=== PATIENT | male | born 1995 | race Caucasian/White ===

== ENCOUNTER 2021-11-04 18:24 | Emergency (ER) | payer OTHER ==
[~2021-11-04] VITALS: Ht 175.3 cm; Wt 54.5 kg
[2021-11-04 19:10] LABS: BASOPHILS % (AUTO) 0.4 % (0-1); EOSINOPHILS # (AUTO) 0.1 X10'3 (0-0.9); EOSINOPHILS % (AUTO) 1.2 % (0-6); HEMATOCRIT 42.7 % (42.0-52.0); HEMOGLOBIN 14.5 g/dl (14.0-17.9); LYMPHOCYTES # (AUTO) 1.8 X10'3 (1.1-4.8); LYMPHOCYTES % (AUTO) 27.1 % (21-51); MEAN CORPUSCULAR HEMOGLOBIN 29.3 PG (27.0-31.0); MEAN CORPUSCULAR HGB CONC 33.9 g/dL (33.0-36.5); MEAN CORPUSCULAR VOLUME 86.3 FL (78-98); MEAN PLATELET VOLUME 8.2 FL (7.4-10.4); MONOCYTES # (AUTO) 0.6 X10'3 (0-0.9); MONOCYTES % (AUTO) 8.6 % (2-12); NEUTROPHILS # (AUTO) 4.1 X10'3 (1.8-7.7); NEUTROPHILS % (AUTO) 62.7 % (42-75); PLATELET COUNT 222 X10'3 (140-440); RED BLOOD COUNT 4.94 X10'6 (4.70-6.10); RED CELL DISTRIBUTION WIDTH 13.9 % (11.5-14.5); WHITE BLOOD COUNT 6.5 X10'3 (4.5-11.0)
[2021-11-04 19:28] LABS: ALANINE AMINOTRANSFERASE 40 U/L (12-78); ALBUMIN 3.5 G/DL (3.4-5.0); ALBUMIN/GLOBULIN RATIO 1.1 (1.1-1.5); ALKALINE PHOSPHATASE 72 IU/L (46-116); ANION GAP 8 (8-16); ASPARTATE AMINO TRANSFERASE 24 U/L (10-37); BILIRUBIN,TOTAL 0.3 MG/DL (0.1-1.0); BLOOD UREA NITROGEN 13 MG/DL (7-18); BUN/CREATININE RATIO 13.1 (5.4-32.0); CHLORIDE 108 MMOL/L (99-107); CREATININE 0.99 MG/DL (0.60-1.10); ETHANOL < 0.010 GM/DL (0.0-0.010); GLUCOSE 109 MG/DL (70-104); POTASSIUM 3.7 MMOL/L (3.5-5.1); SODIUM 141 MMOL/L (135-145); TOTAL CARBON DIOXIDE 25.3 MMOL/L (24-32); TOTAL PROTEIN 6.6 G/DL (6.4-8.2); eGFR > 90 ML/MIN
[2021-11-04] MEDS ORDERED: LORA2TAB96 PO (19:51)
[2021-11-04] MEDS ORDERED: HYDR50CA PO (19:52)
[2021-11-04 20:19] LABS: URINE AMPHETAMINE SCREEN POSITIVE (Neg); URINE BARBITUATE SCREEN NEGATIVE (Neg); URINE BENZODIAZEPINES SCREEN NEGATIVE (Neg); URINE CANNABINOID SCREEN POSITIVE (Neg); URINE COCAINE SCREEN NEGATIVE (Neg); URINE METHADONE SCREEN NEGATIVE (Neg); URINE OPIATE SCREEN NEGATIVE (Neg); URINE PHENCYCLIDINE SCREEN NEGATIVE (Neg)
[2021-11-04] MEDS: hydrOXYzine 25 MG tablet PO SCH (20:48)
--- NOTE | 2021-11-05 06:25 | NUR ---
PT FROM [place], WANTS TO JUMP OFF SOMETHING HIGH
--- NOTE | 2021-11-05 06:39 | NUR ---
PACKET SENT TO [facility]
[2021-11-05] MEDS: hydrOXYzine 25 MG tablet PO SCH ×3 (09:04→17:36)
[2021-11-05 12:21] LABS: CLARITY,URINE CLEAR (Clear); COLOR,URINE YELLOW (Yellow); GLUCOSE, URINE NEGATIVE (Neg); KETONES,URINE NEGATIVE (Neg); LEUKOCYTE ESTERASE ,URINE NEGATIVE (Neg); NITRITES, URINE NEGATIVE (Neg); OCCULT BLOOD,URINE NEGATIVE (Neg); PH,URINE 7.5 (4.8-8.0); PROTEIN,URINE NEGATIVE (Neg); UROBILINOGEN,URINE 0.2 E.U/dL (0.2-1.0)
[2021-11-05 12:22] LABS: UA COLLECTION TYPE URINAL
--- NOTE | 2021-11-05 12:47 | NUR ---
URINE RESULTS FAXED TO [facility]
--- NOTE | 2021-11-05 14:15 | NUR ---
HORTENSIA FROM [facility] CALLED, [facility] WILL CALL BACK FOR ETA.
[2021-11-05] MEDS ORDERED: LORazepam 1 MG tablet PO ONE (14:50)
--- NOTE | 2021-11-05 18:27 | NUR ---
Patient moved to bed 27 in the ER overflow. He has been cooperative with the move.
--- NOTE | 2021-11-05 19:28 | NUR ---
The patient is resting on his bed. Per [facility] ETA of transport to [facility] is 1999.
[2021-11-05 19:53] VITALS: BP 123/65
== END 2021-11-05 19:56 | disposition still patient (30) ==
LOC: ER 18:25
DX: R45.851 Suicidal ideations (principal); Z20.822 Contact with and (suspected) exposure to COVID-19; Z79.899 Other long term (current) drug therapy
CPT/HCPCS: 36415; 80053; 80305; 80320; 81003; 84443; 85025; 87811; 99285; Q0177

== ENCOUNTER 2021-11-09 18:11 | Emergency (ER) | payer SELFPAY ==
[~2021-11-09 18:11] MED LIST: HYDR50CA PO; LORA2TAB96 PO
== END 2021-11-09 19:15 | disposition left against medical advice (07) ==
LOC: ER 18:12
DX: M79.609 Pain in unspecified limb (principal); Z53.21 Procedure and treatment not carried out due to patient leaving prior to being seen by health care provider

== ENCOUNTER 2021-11-11 18:56 | Emergency (ER) | payer SELFPAY ==
[~2021-11-11] VITALS: Ht 175.3 cm; Wt 64.8 kg
[2021-11-11 20:09] VITALS: BP 106/66
== END 2021-11-11 23:58 | disposition left against medical advice (07) ==
LOC: ER 18:57
DX: Z00.00 Encounter for general adult medical examination without abnormal findings (principal); Z53.21 Procedure and treatment not carried out due to patient leaving prior to being seen by health care provider

== ENCOUNTER 2021-11-12 08:10 | Emergency (ER) | payer MEDICAID ==
[~2021-11-12] VITALS: Ht 175.3 cm; Wt 54.5 kg
[2021-11-12 08:36] VITALS: BP 112/67
== END 2021-11-12 10:22 | disposition home or self-care (01) ==
LOC: ER 08:11
DX: R19.7 Diarrhea, unspecified (principal); F17.200 Nicotine dependence, unspecified, uncomplicated; F12.90 Cannabis use, unspecified, uncomplicated; Z59.00 Homelessness unspecified
CPT/HCPCS: 99281

== ENCOUNTER 2021-11-12 13:19 | Emergency (ER) | payer SELFPAY ==
[~2021-11-12] VITALS: Ht 175.3 cm; Wt 59.1 kg
[2021-11-12 13:38] VITALS: BP 114/67
== END 2021-11-12 17:36 | disposition left against medical advice (07) ==
LOC: ER 13:19
DX: R45.851 Suicidal ideations (principal); Z53.21 Procedure and treatment not carried out due to patient leaving prior to being seen by health care provider

== ENCOUNTER 2021-12-17 01:23 | Emergency (ER) | payer MEDICAID ==
[~2021-12-17] VITALS: Ht 175.3 cm; Wt 62.5 kg
[2021-12-17 01:49] VITALS: BP 118/69
[2021-12-17 02:28] LABS: CLARITY,URINE CLEAR (Clear); COLOR,URINE YELLOW (Yellow); GLUCOSE, URINE NEGATIVE (Neg); KETONES,URINE NEGATIVE (Neg); LEUKOCYTE ESTERASE ,URINE NEGATIVE (Neg); NITRITES, URINE NEGATIVE (Neg); OCCULT BLOOD,URINE NEGATIVE (Neg); PROTEIN,URINE NEGATIVE (Neg); UROBILINOGEN,URINE 0.2 E.U/dL (0.2-1.0)
[2021-12-17 02:29] LABS: UA COLLECTION TYPE CLN CATCH MIDSTREAM
[2021-12-17] MEDS ORDERED: CefTRIAXone 1000mg IM Kit (w/lidocaine diluent) IM STA (03:33)
[2021-12-17] MEDS ORDERED: azithromycin 250mg tablet PO ONE (03:35)
== END 2021-12-17 04:31 | disposition home or self-care (01) ==
LOC: ER 01:23
DX: A64 Unspecified sexually transmitted disease (principal); F17.200 Nicotine dependence, unspecified, uncomplicated; F12.10 Cannabis abuse, uncomplicated; Z59.00 Homelessness unspecified; Z79.899 Other long term (current) drug therapy
CPT/HCPCS: 36415; 81003; 87491; 87591; 96372; 99283; J0696

== ENCOUNTER 2021-12-19 10:57 | Emergency (ER) | payer MEDICAID ==
[~2021-12-19] VITALS: Ht 175.3 cm; Wt 62.0 kg
[2021-12-19 16:15] LABS: BASOPHILS # (AUTO) 0.2 X10'3 (0-0.2); EOSINOPHILS # (AUTO) 0.1 X10'3 (0-0.9); EOSINOPHILS % (AUTO) 1.2 % (0-6); HEMATOCRIT 43.9 % (42.0-52.0); HEMOGLOBIN 15.1 g/dl (14.0-17.9); LYMPHOCYTES # (AUTO) 2.1 X10'3 (1.1-4.8); LYMPHOCYTES % (AUTO) 24.9 % (21-51); MEAN CORPUSCULAR HGB CONC 34.4 g/dL (33.0-36.5); MEAN CORPUSCULAR VOLUME 87.1 FL (78-98); MEAN PLATELET VOLUME 8.2 FL (7.4-10.4); MONOCYTES # (AUTO) 0.4 X10'3 (0-0.9); MONOCYTES % (AUTO) 5.2 % (2-12); NEUTROPHILS # (AUTO) 5.6 X10'3 (1.8-7.7); NEUTROPHILS % (AUTO) 66.7 % (42-75); PLATELET COUNT 274 X10'3 (140-440); RED BLOOD COUNT 5.04 X10'6 (4.70-6.10); RED CELL DISTRIBUTION WIDTH 14.1 % (11.5-14.5); WHITE BLOOD COUNT 8.4 X10'3 (4.5-11.0)
[2021-12-19 16:28] LABS: ALANINE AMINOTRANSFERASE 39 U/L (12-78); ALBUMIN 3.5 G/DL (3.4-5.0); ALBUMIN/GLOBULIN RATIO 1.1 (1.1-1.5); ALKALINE PHOSPHATASE 76 IU/L (46-116); ANION GAP 5 (8-16); ASPARTATE AMINO TRANSFERASE 36 U/L (10-37); BILIRUBIN,TOTAL 0.4 MG/DL (0.1-1.0); BLOOD UREA NITROGEN 12 MG/DL (7-18); BUN/CREATININE RATIO 11.5 (5.4-32.0); CALCIUM 8.2 MG/DL (8.5-10.1); CHLORIDE 107 MMOL/L (99-107); CREATININE 1.04 MG/DL (0.60-1.10); SODIUM 141 MMOL/L (135-145); TOTAL PROTEIN 6.7 G/DL (6.4-8.2); eGFR 87 ML/MIN
[2021-12-19 16:39] LABS: GLUCOSE 110 MG/DL (70-104); POTASSIUM 4.1 MMOL/L (3.5-5.1)
[2021-12-19 16:43] LABS: ETHANOL < 0.010 GM/DL (0.0-0.010)
--- NOTE | 2021-12-19 19:08 | NUR ---
Pt brought to ER overflow, belongings inventoried, changed into green scrubs, and given a sandwhich and water.
--- NOTE | 2021-12-19 22:00 | NUR ---
Pt encouraged to use the bathroom to give a urine sample, but he states he doesn't have to go. pitcher of water given to him and encouraged to drink
--- NOTE | 2021-12-20 00:10 | NUR ---
PT sleeping on R side RR 16
--- NOTE | 2021-12-20 02:00 | NUR ---
Pt sleeping respirations even and unlabored
--- NOTE | 2021-12-20 05:00 | NUR ---
Pt woken up and still states he doesn't need to urinate
[2021-12-20 05:44] VITALS: BP 103/54
--- NOTE | 2021-12-20 06:30 | NUR ---
Pt is in bed, appears to be sleeping.
--- NOTE | 2021-12-20 08:07 | NUR ---
UA collected and sent.
[2021-12-20] MEDS: hydrOXYzine 25 MG tablet PO SCH ×2 (08:10→12:59)
[2021-12-20 08:15] LABS: CLARITY,URINE CLOUDY (Clear); COLOR,URINE YELLOW (Yellow); GLUCOSE, URINE NEGATIVE (Neg); KETONES,URINE NEGATIVE (Neg); LEUKOCYTE ESTERASE ,URINE NEGATIVE (Neg); NITRITES, URINE NEGATIVE (Neg); OCCULT BLOOD,URINE NEGATIVE (Neg); PH,URINE 7.5 (4.8-8.0); PROTEIN,URINE NEGATIVE (Neg); UROBILINOGEN,URINE 0.2 E.U/dL (0.2-1.0)
[2021-12-20 08:16] LABS: UA COLLECTION TYPE CLN CATCH MIDSTREAM
[2021-12-20 08:24] LABS: RBC,URINE 0-2 /HPF (0-2); WBC,URINE 0-4 /HPF (0-4)
[2021-12-20 08:25] LABS: AMORPHOUS PHOSPHATES 3+; BACTERIA,URINE NONE SEEN /HPF (Neg); SQUAMOUS EPITHELIAL CELL,UR FEW /LPF (FEW)
[2021-12-20 08:29] LABS: URINE AMPHETAMINE SCREEN NEGATIVE (Neg); URINE BARBITUATE SCREEN NEGATIVE (Neg); URINE BENZODIAZEPINES SCREEN NEGATIVE (Neg); URINE CANNABINOID SCREEN NEGATIVE (Neg); URINE COCAINE SCREEN NEGATIVE (Neg); URINE METHADONE SCREEN NEGATIVE (Neg); URINE OPIATE SCREEN NEGATIVE (Neg); URINE PHENCYCLIDINE SCREEN NEGATIVE (Neg)
--- NOTE | 2021-12-20 10:03 | NUR ---
Pt is lying in bed on his right side, he appears to be sleeping.
--- NOTE | 2021-12-20 12:00 | NUR ---
Pt is lying in bed, appears to be sleeping.
--- NOTE | 2021-12-20 13:18 | NUR ---
Pt ate 100% of lunch.
--- NOTE | 2021-12-20 13:30 | NUR ---
[facility] is evaluating pt.
--- NOTE | 2021-12-20 14:58 | NUR ---
Pt is being discharged.
--- NOTE | 2021-12-20 15:25 | NUR ---
Pt discharged. All belongings returned, a sack lunch was provided. Pt did not have shoes, this nurse found him a pair of shoes. Pt ambulated off the unit accompanied by security.
[2021-12-20] MEDS ORDERED: LORazepam 1 MG tablet PO PRN (21:00)
== END 2021-12-20 15:25 | disposition home or self-care (01) ==
LOC: ER 10:58
DX: F32.A Depression, unspecified (principal); Z20.822 Contact with and (suspected) exposure to COVID-19; F15.10 Other stimulant abuse, uncomplicated; R45.851 Suicidal ideations; F20.9 Schizophrenia, unspecified; F12.90 Cannabis use, unspecified, uncomplicated; Z72.89 Other problems related to lifestyle; Z59.00 Homelessness unspecified; Z79.899 Other long term (current) drug therapy
CPT/HCPCS: 36415; 80053; 80305; 80320; 81001; 84443; 85025; 87811; 99285; Q0177; A4565; A6449

== ENCOUNTER 2022-01-09 22:31 | Emergency (ER) | payer MEDICAID | END 2022-01-09 22:41 | disposition left against medical advice (07) | LOC: ER 22:32 | DX: M79.609 Pain in unspecified limb (principal); Z53.21 Procedure and treatment not carried out due to patient leaving prior to being seen by health care provider ==

== ENCOUNTER 2022-03-14 18:22 | Emergency (ER) | payer MEDICAID | END 2022-03-14 18:38 | disposition left against medical advice (07) | LOC: ER 18:25 | DX: Z11.3 Encounter for screening for infections with a predominantly sexual mode of transmission (principal); Z53.21 Procedure and treatment not carried out due to patient leaving prior to being seen by health care provider ==

== ENCOUNTER 2022-06-17 23:49 | Emergency (ER) | payer MEDICAID, OTHER ==
[~2022-06-17] VITALS: Ht 177.8 cm; Wt 66.8 kg
[~2022-06-17 23:49] MED LIST changes: +LANS30CA37 PO
[2022-06-17 23:59] VITALS: BP 117/78
[2022-06-18] MEDS ORDERED: buprenorphine/naloxone 8MG-2MG SUBlingual film SL ONE (00:10)
== END 2022-06-18 00:59 | disposition home or self-care (01) ==
LOC: ER 23:50
DX: F11.13 Opioid abuse with withdrawal (principal); F12.90 Cannabis use, unspecified, uncomplicated; F15.20 Other stimulant dependence, uncomplicated; Z88.8 Allergy status to other drugs, medicaments and biological substances; Z59.00 Homelessness unspecified
CPT/HCPCS: 99282

== ENCOUNTER 2022-11-01 11:46 | Emergency (ER) | payer MEDICAID ==
[~2022-11-01] VITALS: Ht 175.3 cm; Wt 60.0 kg
[2022-11-01 11:48] VITALS: BP 123/77; PULSE 84; RESP 16; TEMP 97.8; O2SAT 98
== END 2022-11-01 12:00 | disposition left against medical advice (07) ==
LOC: ER 11:47
DX: M79.673 Pain in unspecified foot (principal); Z53.21 Procedure and treatment not carried out due to patient leaving prior to being seen by health care provider
CPT/HCPCS: 99281

== ENCOUNTER 2022-11-19 21:51 | Emergency (ER) | payer MEDICAID | END 2022-11-19 23:21 | disposition left against medical advice (07) | LOC: ER 21:52 | DX: R10.9 Unspecified abdominal pain (principal); Z53.21 Procedure and treatment not carried out due to patient leaving prior to being seen by health care provider ==

== ENCOUNTER 2023-04-15 05:06 | Emergency (ER) | payer MEDICAID ==
[~2023-04-15] VITALS: Ht 175.3 cm; Wt 64.1 kg
[2023-04-15 05:13] VITALS: TEMP 98.2
[2023-04-15 09:27] VITALS: BP 103/63; PULSE 57; RESP 14; O2SAT 100
== END 2023-04-15 11:04 | disposition left against medical advice (07) ==
LOC: ER 05:07
DX: R44.0 Auditory hallucinations (principal); Z53.21 Procedure and treatment not carried out due to patient leaving prior to being seen by health care provider
CPT/HCPCS: 99281

== ENCOUNTER 2023-04-28 13:32 | Emergency (ER) | payer MEDICAID ==
[~2023-04-28] VITALS: Ht 175.3 cm; Wt 60.2 kg
[2023-04-28 14:24] VITALS: BP 130/69; PULSE 102; RESP 16; TEMP 98.5; O2SAT 100
== END 2023-04-28 14:46 | disposition home or self-care (01) ==
LOC: ER 13:33
DX: Z00.8 Encounter for other general examination (principal); F20.9 Schizophrenia, unspecified; F12.90 Cannabis use, unspecified, uncomplicated; F15.90 Other stimulant use, unspecified, uncomplicated; F11.90 Opioid use, unspecified, uncomplicated; Z59.00 Homelessness unspecified; Z72.89 Other problems related to lifestyle; Z88.8 Allergy status to other drugs, medicaments and biological substances; Z79.899 Other long term (current) drug therapy
CPT/HCPCS: 99283

== ENCOUNTER 2023-06-20 18:43 | Emergency (ER) | payer MEDICAID ==
[~2023-06-20] VITALS: Ht 175.3 cm; Wt 63.6 kg
[2023-06-20 18:55] VITALS: BP 119/72; PULSE 100; RESP 18; TEMP 98; O2SAT 99
[2023-06-20 19:07] LABS: BASOPHILS # (AUTO) 0.1 X10'3 (0-0.2); BASOPHILS % (AUTO) 1.2 % (0-1); EOSINOPHILS # (AUTO) 0.1 X10'3 (0-0.9); HEMATOCRIT 43.3 % (42.0-52.0); HEMOGLOBIN 14.3 g/dl (14.0-17.9); LYMPHOCYTES # (AUTO) 2.7 X10'3 (1.1-4.8); LYMPHOCYTES % (AUTO) 47.2 % (21-51); MEAN CORPUSCULAR VOLUME 87.7 FL (78-98); MEAN PLATELET VOLUME 8.1 FL (7.4-10.4); MONOCYTES # (AUTO) 0.6 X10'3 (0-0.9); MONOCYTES % (AUTO) 10.3 % (2-12); NEUTROPHILS # (AUTO) 2.3 X10'3 (1.8-7.7); NEUTROPHILS % (AUTO) 39.3 % (42-75); PLATELET COUNT 296 X10'3 (140-440); RED BLOOD COUNT 4.93 X10'6 (4.70-6.10); RED CELL DISTRIBUTION WIDTH 14.3 % (11.5-14.5); WHITE BLOOD COUNT 5.7 X10'3 (4.5-11.0)
[2023-06-20 19:22] LABS: PRO BRAIN NATRIURETIC PEPTIDE < 30 PG/ML (0-125)
== END 2023-06-20 20:01 | disposition left against medical advice (07) ==
LOC: ER 18:43
DX: R07.89 Other chest pain (principal); Z53.21 Procedure and treatment not carried out due to patient leaving prior to being seen by health care provider
CPT/HCPCS: 36415; 83880; 84484; 85025; 93005; 99281

== ENCOUNTER 2024-08-25 00:02 | Emergency (ER) | payer MEDICAID ==
[~2024-08-25] VITALS: Ht 175.3 cm; Wt 51.6 kg
[2024-08-25 00:05] VITALS: BP 112/56; PULSE 74; RESP 15
[2024-08-25 02:49] LABS: BASOPHILS % (AUTO) 0.6 % (0-1); EOSINOPHILS # (AUTO) 0.1 X10'3 (0-0.9); EOSINOPHILS % (AUTO) 1.8 % (0-6); HEMATOCRIT 39.8 % (42.0-52.0); HEMOGLOBIN 13.7 g/dl (14.0-17.9); LYMPHOCYTES # (AUTO) 2.3 X10'3 (1.1-4.8); LYMPHOCYTES % (AUTO) 42.5 % (21-51); MEAN CORPUSCULAR HEMOGLOBIN 29.1 PG (27.0-31.0); MEAN CORPUSCULAR HGB CONC 34.4 g/dL (33.0-36.5); MEAN CORPUSCULAR VOLUME 84.7 FL (78-98); MONOCYTES # (AUTO) 0.5 X10'3 (0-0.9); MONOCYTES % (AUTO) 9.2 % (2-12); NEUTROPHILS # (AUTO) 2.5 X10'3 (1.8-7.7); NEUTROPHILS % (AUTO) 45.9 % (42-75); PLATELET COUNT 215 X10'3 (140-440); RED BLOOD COUNT 4.69 X10'6 (4.70-6.10); RED CELL DISTRIBUTION WIDTH 14.2 % (11.5-14.5); WHITE BLOOD COUNT 5.5 X10'3 (4.5-11.0)
[2024-08-25 03:06] LABS: ALANINE AMINOTRANSFERASE 38 U/L (12-78); ALBUMIN 3.3 G/DL (3.4-5.0); ALBUMIN/GLOBULIN RATIO 1.1 (1.1-1.5); ALKALINE PHOSPHATASE 80 IU/L (46-116); ANION GAP 6 (8-16); ASPARTATE AMINO TRANSFERASE 37 U/L (10-37); BILIRUBIN,TOTAL 0.5 MG/DL (0.1-1.0); BLOOD UREA NITROGEN 18 MG/DL (7-18); BUN/CREATININE RATIO 16.5 (10.0-20.0); CALCIUM 8.3 MG/DL (8.5-10.1); CHLORIDE 107 MMOL/L (99-107); CREATININE 1.09 MG/DL (0.60-1.10); GLUCOSE 111 MG/DL (70-104); POTASSIUM 3.7 MMOL/L (3.5-5.1); SODIUM 142 MMOL/L (135-145); TOTAL CARBON DIOXIDE 29.5 MMOL/L (24-32); TOTAL PROTEIN 6.2 G/DL (6.4-8.2); eCRCL 74 ML/MIN; eGFR 81 ML/MIN
--- NOTE | 2024-08-25 03:22 | Physician Documentation ---
History of Present Illness ~ General Chief Complaint: General Stated Complaint: WHOLE BODY HURTS Time Seen by MD: 01:11 Primary Medical Doctor: None Source: patient Mode of Arrival: POV Exam Limitations: no limitations History of Present Illness Initial Comments Otherwise healthy male who is homeless in reporting generalized intermittent pain over the past year. He has not seen a doctor. He states every once in awh ile he does get some cramping. States he has not eaten in a couple of days and would like a meal. Reports he has regular access to water. Denies any drug alcohol or tobacco use. Medication Reconciliation Allergies: Coded Allergies: No Known Allergies (Unverified , 08/25/24) Scheduled Hydroxyzine Pamoate (Vistaril), 1 CAP PO QID, (Reported) Lansoprazole (Prevacid), 1 CAP PO DAILY Lorazepam (Ativan), 1 TAB PO HSPRN, (Reported) Past Medical History Past Medical History: No Pertinent History, *PSYCH*, Schizophrenia Past Surgical History: noncontributory Alcohol Use: Occasionally Drug Use: marijuana, methamphetamine, heroin, other Lives In: Homeless Review of Systems All Other Systems at this time: Reviewed and Negative Physical Exam Physical Exam Vital Signs: Temperature: 97.6, Source: Temporal, Heart Rate: 74, Respiratory Rate: 15, BP: 112/56, Weight: 51.650 Physical Exam General: Alert and oriented x4, well-nourished, no acute distress, poor hygiene HEENT: Normocephalic, atraumatic, no visible or palpable masses or depression, extraocular movements intact, PERRLA, no scleral icterus, Heart: Regular rate and rhythm, = Lungs: Clear = normal work of breathing Extremities: Full range of motion, no acute deformity, Musculoskeletal: Normal gait, normal tone Neurologic: Cranial nerves 2-12 are intact, Psychiatric: Alert and oriented x4, judgment and insight normal, normal mood and affect Skin: Good turgor, no rashes Progress Results/Orders Results/Orders Completed Orders - MOLLY DIXON MD Cbc/Diff (08/25/24 01:18) CMP (08/25/24 01:18) Vital Signs 08/25/24 08/25/24 00:05 03:24 Temp 97.6 97.6 Pulse 74 Resp 15 B/P (MAP) 112/56 Laboratory Tests Test 08/25/24 02:40 White Blood Count 5.5 Red Blood Count 4.69 L Hemoglobin 13.7 L Hematocrit 39.8 L Mean Corpuscular Volume 84.7 Mean Corpuscular Hemoglobin 29.1 Mean Corpuscular Hemoglobin Concent 34.4 Red Cell Distribution Width 14.2 Platelet Count 215 Mean Platelet Volume 8.0 Neutrophils (%) (Auto) 45.9 Lymphocytes (%) (Auto) 42.5 Monocytes (%) (Auto) 9.2 Eosinophils (%) (Auto) 1.8 Basophils (%) (Auto) 0.6 Neutrophils # (Auto) 2.5 Lymphocytes # (Auto) 2.3 Monocytes # (Auto) 0.5 Eosinophils # (Auto) 0.1 Basophils # (Auto) 0.0 CBC Comment Sodium Level 142 Potassium Level 3.7 Chloride Level 107 Carbon Dioxide Level 29.5 Anion Gap 6 L Blood Urea Nitrogen 18 Creatinine 1.09 Estimated GFR/1.73 m2 81 BUN/Creatinine Ratio 16.5 Glucose Level 111 H Calcium Level 8.3 L Total Bilirubin 0.5 Aspartate Amino Transf (AST/SGOT) 37 Alanine Aminotransferase (ALT/SGPT) 38 Alkaline Phosphatase 80 Total Protein 6.2 L Albumin 3.3 L Globulin 2.9 Albumin/Globulin Ratio 1.1 Chemistry Comments Departure Disposition: HOME / SELF CARE / HOMELESS Impression: Primary Impression: Homelessness Additional Impression Text Etiology unclear. Patient is homeless. Did go ahead and do a CBC and a chemistry panel. No significant findings. Discussed the importance of trying to get regular meals and staying hydrated. He states he was staying in a senior living but he did not really get along with people so he left. Discharging in good condition. Given meal. He is to return here if any concerns or new or worsening symptoms. Condition: Stable Additional Instructions: Your labs are normal today. Follow-up if any further concerns. Referrals: NO PRIMARY CARE PROVIDER (PCP) Education Educated: Patient Educated regarding: diagnosis, need for follow up Signature Scribe Signature: No scribe Attestation: No joeyibMOLLY Means MD Aug 25, 2024 03:22
[2024-08-25 03:24] VITALS: TEMP 97.6
[2024-08-25] MEDS ORDERED: IBUP-862 PO (20:25)
== END 2024-08-25 03:28 | disposition home or self-care (01) ==
LOC: ER 00:03
DX: R52 Pain, unspecified (principal); F12.90 Cannabis use, unspecified, uncomplicated; F15.90 Other stimulant use, unspecified, uncomplicated; F11.90 Opioid use, unspecified, uncomplicated; Z59.01 Sheltered homelessness; Z79.899 Other long term (current) drug therapy; Z72.89 Other problems related to lifestyle
CPT/HCPCS: 36415; 80053; 85025; 99283

== ENCOUNTER 2024-08-25 19:18 | Emergency (ER) | payer MEDICAID ==
[~2024-08-25] VITALS: Ht 175.3 cm; Wt 66.0 kg
--- NOTE | 2024-08-25 20:10 | Physician Documentation ---
History of Present Illness ~ Chief Complaint: Foot pain Stated Complaint: BOTH FEET HURT Time Seen by MD: 19:39 Primary Medical Doctor: None HPI 28-year-old male with complaints of bilateral foot pain. Patient undomiciled. Tetanus witin 5 years: No Medication Reconciliation Allergies: Coded Allergies: No Known Allergies (Unverified , 08/25/24) Scheduled Hydroxyzine Pamoate (Vistaril), 1 CAP PO QID, (Reported) Lansoprazole (Prevacid), 1 CAP PO DAILY Lorazepam (Ativan), 1 TAB PO HSPRN, (Reported) Past Medical History Past Medical History: No Pertinent History, *PSYCH*, Schizophrenia Past Surgical History: noncontributory Alcohol Use: Occasionally Drug Use: marijuana, methamphetamine, heroin, other Lives In: Homeless Physical Exam Vital Signs: Temperature: 98.0, Source: Oral, Heart Rate: 78, Respiratory Rate: 16, BP: 114/55, Pulse Oximetry: 97, Weight: 66.000 Oxygen Flow Rate: 0 General Appearance: alert, WD/WN, no apparent distress Respiratory: lungs clear, normal breath sounds, no respiratory distress Chest: no accessory muscle use, chest non-tender Cardiovascular: normal peripheral pulses, regular rate, rhythm, no edema Feet Obvious signs of infection but blisters to the medial aspect of both 5th toes Progress Results/Orders Results/Orders Vital Signs 08/25/24 19:21 Temp 98.0 Pulse 78 Resp 16 B/P (MAP) 114/55 Pulse Ox 97 O2 Flow Rate 0 Medical Decision Making Findings Blisters to the bilateral 5th toes no obvious infection wearing shoes that are very worn and too tight Departure Time of Disposition: 20:24 Disposition: 01 HOME / SELF CARE / HOMELESS Impression: Primary Impression: Foot pain Condition: Stable Discharge Instructions: Athlete's Foot, [id number] Additional Instructions: Keep your feet clean and dry. Take Tylenol or ibuprofen as needed for mild pain. Monitor for infection follow up with primary care urgent care Referrals: NO PRIMARY CARE PROVIDER (PCP) Prescriptions Ibuprofen (Ibu) 600 Mg Tablet 1 TAB PO Q6H for 7 Days, #28 TAB 0 Refills Prov: ANNIA GUERRERO NP 08/25/24 Education Educated: Patient Educated regarding: diagnosis, treatment, need for follow up Signature Scribe Signature: No scribe Attestation: The note accurately reflects work and decisions made by me.Annia Guerrero - AVIATION PROJECT ENGINEER 08/25/24 20:25 ANNIA GUERRERO PRODUCTION SUPERVISOR OFF SHIFT Aug 25, 2024 20:10
[2024-08-25] MEDS ORDERED: IBUP-862 PO (20:25)
[2024-08-25 20:48] VITALS: BP 114/64; PULSE 70; RESP 16; TEMP 98; O2SAT 99
== END 2024-08-25 20:48 | disposition home or self-care (01) ==
LOC: ER 19:18
DX: M79.672 Pain in left foot (principal); M79.671 Pain in right foot; F12.90 Cannabis use, unspecified, uncomplicated; F15.90 Other stimulant use, unspecified, uncomplicated; F11.90 Opioid use, unspecified, uncomplicated; Z79.899 Other long term (current) drug therapy; Z59.00 Homelessness unspecified; Z72.89 Other problems related to lifestyle
CPT/HCPCS: 99282

== ENCOUNTER 2025-03-10 08:29 | Emergency (ER) | payer MEDICAID ==
[~2025-03-10] VITALS: Ht 175.3 cm; Wt 63.6 kg
[~2025-03-10 08:29] MED LIST changes: +IBUP-862 PO
[2025-03-10 08:30] VITALS: TEMP 98
[2025-03-10] MEDS ORDERED: NALO4SPR BOTHNARES (10:21)
--- NOTE | 2025-03-10 10:22 | Physician Documentation ---
History of Present Illness ~ Chief Complaint: Overdose Stated Complaint: OVERDOSE Time Seen by MD: 10:00 Primary Medical Doctor: None Source: patient Mode of Arrival: EMS Exam Limitations: no limitations HPI 29-year-old male was picked up by EMS after a bystanders witnessed some small convulsions and drug use. Patient states that he took 2 hits a fentanyl and became over-sedated positive effects with Narcan per EMS he was able to wake up and has been awake. Patient states that he has been using drugs for many years only history per patient is hepatitis-C. Medication Reconciliation Allergies: Coded Allergies: No Known Allergies (Unverified , 08/25/24) Scheduled Hydroxyzine Pamoate (Vistaril), 1 CAP PO QID, (Reported) Ibuprofen (Ibu), 1 TAB PO Q6H Lansoprazole (Prevacid), 1 CAP PO DAILY Lorazepam (Ativan), 1 TAB PO HSPRN, (Reported) Past Medical History Past Medical History: Hepatitis C, *PSYCH*, Schizophrenia Past Surgical History: noncontributory Alcohol Use: Occasionally Drug Use: marijuana, methamphetamine, heroin, other Lives In: Homeless Occupation: unemployed Review of Systems All Other Systems at this time: Reviewed and Negative Constitutional: Reports: see HPI Physical Exam Vital Signs: RN Vital Signs have been reviewed: Yes, Temperature: 98.0, Source: Temporal, Heart Rate: 110, Respiratory Rate: 16, BP: 114/77, Pulse Oximetry: 98, Weight: 63.640 Oxygen Flow Rate: 0 Physical Exam General: Alert, no apparent distress. HEENT: PERRL, EOMI, no injection, moist mucous membranes. Neck: Full range of motion. Respiratory: Lungs clear, no respiratory distress. Chest: No accessory muscle use. Cardiovascular: Regular rate and rhythm, no murmurs. Extremities: Normal range of motion, no deformity. Neurologic: Oriented x4. Psychiatric: Normal mood and affect. Skin: Normal color, warm and dry. No edema, no ecchymosis. Small scabbed areas to the heels Progress Results/Orders Results/Orders Vital Signs 03/10/25 03/10/25 03/10/25 08:30 09:32 09:41 Temp 98.0 Pulse 91 110 Resp 16 16 16 B/P (MAP) 141/89 114/77 (89) Pulse Ox 99 98 O2 Flow Rate 0 0 Medical Decision Making Additional information obtaine: old records Findings Patient had 1 dose of Narcan EN route by EMS and has been alert and oriented 4 almost 2 hours. Patient as answering questions appropriately and can ambulate. We will give food and water there are a couple of scabbed areas to his heels we will treat with bacitracin and Band-Aids. Differential Dx:Considerations: Include: Drug Overdose-Accidental, Drug Overdose-Intentional, Encephalopathy, Hallucinations, Substance abuse, Suicidal attempt, Suidical gesture Departure Disposition: 01 HOME / SELF CARE / HOMELESS Impression: Primary Impression: Poisoning by opiate or related narcotic Condition: Stable Discharge Instructions: Overdose, Adult Additional Instructions: Keep Narcan due to fentanyl use. There are multiple programs in the area including [facility] handout provided in your discharge. Referrals: NO PRIMARY CARE PROVIDER (PCP) Prescriptions Naloxone HCl (Narcan) 4 Mg/Actuation [place] 1 SPRAYS BOTHNARES ONCE for 1 Day, #1 EA 0 Refills Prov: ANNIA MOORE NP 03/10/25 Education Educated: Patient Educated regarding: diagnosis, treatment, need for follow up Signature Scribe Signature: No scribe Attestation: The note accurately reflects work and decisions made by me.Annia LOZANO 03/10/25 10:21 ANNIA MOORE NP Mar 10, 2025 10:22
[2025-03-10] MEDS: bacitracin 15gm ointment TP ONE (10:27)
[2025-03-10 10:55] LABS: URINE AMPHETAMINE SCREEN NEGATIVE (Neg); URINE BARBITUATE SCREEN NEGATIVE (Neg); URINE BENZODIAZEPINES SCREEN NEGATIVE (Neg); URINE CANNABINOID SCREEN POSITIVE (Neg); URINE COCAINE SCREEN NEGATIVE (Neg); URINE METHADONE SCREEN NEGATIVE (Neg); URINE OPIATE SCREEN NEGATIVE (Neg); URINE PHENCYCLIDINE SCREEN NEGATIVE (Neg)
[2025-03-10 11:14] VITALS: BP 139/74; PULSE 110; RESP 16; O2SAT 95
== END 2025-03-10 11:16 | disposition home or self-care (01) ==
LOC: ER 08:30
DX: T40.601A Poisoning by unspecified narcotics, accidental (unintentional), initial encounter (principal); F20.9 Schizophrenia, unspecified; F12.90 Cannabis use, unspecified, uncomplicated; F15.90 Other stimulant use, unspecified, uncomplicated; F11.90 Opioid use, unspecified, uncomplicated; F19.90 Other psychoactive substance use, unspecified, uncomplicated; Z86.19 Personal history of other infectious and parasitic diseases; Z79.899 Other long term (current) drug therapy; Z59.00 Homelessness unspecified; Z56.0 Unemployment, unspecified; Y92.89 Other specified places as the place of occurrence of the external cause
CPT/HCPCS: 80305; 99283